=== PATIENT | male | born 1965 | race Caucasian/White ===

== ENCOUNTER 2016-11-17 07:06 | Day surgery (SDC) | payer OTHER ==
[2016-11-16 13:35] VITALS: BMI 25.9
[~2016-11-17] VITALS: Ht 170.2 cm; Wt 80.1 kg
[2016-11-17] VITALS (18 sets, daily range): BP systolic 117–164; BP diastolic 69–99; PULSE 50–86; RESP 12–23; Ht 170.2 cm; Wt 80.1 kg
[~2016-11-17 07:06] MED LIST: CEFAZOLIN 1 GM INJ ONE; ROCURONIUM 50 MG INJ ONE
[2016-11-17] MEDS ORDERED: MIDAZOLAM 1 MG/ML 2 ML INJ ONE ×2 (08:24→09:29)
[2016-11-17] MEDS ORDERED: PROPOFOL 20 ML ONE (08:24)
[2016-11-17] MEDS ORDERED: ROPIVACAINE 0.2% 20 ML VIAL ONE (08:24)
[2016-11-17] MEDS ORDERED: METOCLOPRAMIDE 10 MG INJ ONE (08:24)
[2016-11-17] MEDS ORDERED: morphine SULFATE/PF (10 MG/10 ML) INJ ONE (09:11)
[2016-11-17] MEDS ORDERED: EPINEPHrine 1 MG/ML 30 ML INJ ONE (09:11)
[2016-11-17] MEDS ORDERED: DULO30CA45 PO (09:12)
[2016-11-17] MEDS ORDERED: METH54TA9 PO (09:12)
[2016-11-17] MEDS ORDERED: PHEN30CA79 PO (09:14)
[2016-11-17] MEDS ORDERED: HYDR12.58 PO (09:14)
--- NOTE | 2016-11-17 09:29 | PREOPHP ---
DATE OF ADMISSION: 11/17/2016 This 51-year-old gentleman is going to be admitted for a diagnostic arthroscopy of left shoulder, ex amination under general anesthesia, Bankart repair, SLAP repair, possible cuff repair of left should er. This patient has been experiencing left shoulder pain for quite a while. Conservative treatment res ulted in limited benefit to the patient. The patient has requested surgical intervention. PAST MEDICAL HISTORY: Neuropathy, rheumatoid arthritis, high blood pressure. SOCIAL HISTORY: Patient is nonsmoker, rarely drinks. FAMILY HISTORY: Negative. ALLERGIES: PATIENT GIVES NO HISTORY OF ALLERGY TO MEDICATION. MEDICATIONS: Have been for ADHD and antianxiety. Other medication has been Tylenol 3 for pain for surgery and Sulindac 75 twice. REVIEW OF SYSTEMS: Limited to present illness. PHYSICAL EXAMINATION: SKIN: Within normal limits. EARS, NOSE, THROAT: PERRLA. HEAD AND NECK: Normocephalic. Trachea midline. Bilateral symmetrical carotid pulses. No mass, no bruit, no lymphadenopathy. CARDIOVASCULAR: Normal sinus rhythm. S1, S2 normal. No murmur. No JVD. No peripheral edema. LUNGS: Clear. ABDOMEN: Slightly protuberant. No organomegaly. No mass. Bowel sounds present. GENITOURINARY AND RECTAL: Not pertinent to this admission. MUSCULOSKELETAL: Height 5 feet 7, weight 178 pounds. Cervical spine shows normal findings, normal range of motion. Shoulders, elbow, forearm, wrist and hands were symmetrical and normal except for left shoulder range of motion is about 90%. There is minimal muscle atrophy. There is positive dim ple sign. There is tenderness over the trapezius region and tenderness over the anterior glenohumer al joint. Questionable [place]y test. The radiology report of the left shoulder MRI indicates a partial tear of the supraspinatus tendon. No other abnormality reported. Spine and both lower extremities symmetrical and normal including neurovascular examination. DIAGNOSES: Left shoulder instability, positive impingement sign, positive superior labrum anterior to posterior lesion and possible rotator cuff tear. Treatment plan, alternatives, risks and benefits discussed. The patient understands possibility of complications from surgery such as infection, nerve damage, v ascular damage, possibility of deep venous thrombosis, pulmonary embolism, hypersensitivity, and guerda n . Patient understands ideal result will not be obtained depending on known or unknown factor or factors. Dictated By: RAVEN PARSONS/JUANCARLOS Conf#: [id number] [facility]#: [id number]
[2016-11-17] MEDS ORDERED: CEFAZOLIN 2 GM/50 ML (PMX) 50 ML IVPB ONE (09:30)
[2016-11-17] MEDS ORDERED: HYDROmorphONE 2 MG/ML SYG ONE (10:00)
[2016-11-17] MEDS ORDERED: METOPROLOL 5 MG INJ ONE (10:04)
[2016-11-17] MEDS ORDERED: KETOROLAC 30 MG INJ ONE (11:42)
[2016-11-17] MEDS ORDERED: MEPERIDINE 25 MG INJ IV PRN (12:00)
[2016-11-17] MEDS ORDERED: METOCLOPRAMIDE 10 MG INJ IV PRN (12:00)
[2016-11-17] MEDS ORDERED: hydrALAzine 20 MG INJ IV PRN (12:00)
[2016-11-17] MEDS ORDERED: LABETALOL HCL 20MG INJ IV PRN (12:00)
[2016-11-17] MEDS ORDERED: DIPHENHYDRAMINE 50 MG INJ IV PRN (12:00)
[2016-11-17] MEDS ORDERED: OXYCODONE/ACETAMINOPHEN (5/325) TAB PO PRN ×3 (12:00→12:30)
[2016-11-17] MEDS ORDERED: ONDANSETRON 4 MG INJ IV PRN ×2 (12:00→12:30)
[2016-11-17] MEDS ORDERED: HYDROmorphONE (0.2 MG/ML) 10ML SYG IV PRN ×3 (12:00)
[2016-11-17] MEDS ORDERED: ACETAMINOPHEN 500 MG TAB PO PRN (12:30)
[2016-11-17] MEDS ORDERED: HYDROCODONE/APAP (5/325) TAB PO PRN (12:30)
--- NOTE | 2016-11-17 13:56 | OPR ---
DATE OF OPERATION: 11/17/2016 PREOPERATIVE DIAGNOSES: 1. Right shoulder Bankart lesion, possible superior labrum anterior-posterior lesion. 2. Rotator cuff tear. OPERATIONS PERFORMED: 1. Diagnostic arthroscopy. 2. Examination under general anesthesia. 3. Bankart repair. 4. Acromioplasty of left shoulder. ANESTHESIA: General. BLEEDING: Minimal. COMPLICATIONS: None. APARTMENT PROPERTY MANAGER: ____ . DESCRIPTION OF PROCEDURE: The patient was transferred to the operating room and placed on the opera ting table in supine position. General anesthesia was induced. Two grams of Ancef was given IV. T he patient was put on right decubitus position. Axillary roll applied. Knee padded. Axillary bloc k was already given by the anesthesiologist. The left shoulder was prepped and draped in the routin e fashion. During these procedures, we used Arthrex shoulder carrington, total of 10 pounds in subacrom ial space and a total of 10 pounds in the glenohumeral joint. After regular prep and draping, the landmarks were marked. Through a posterior portal, glenohumeral joint was entered. Anterolateral portal was established. An 8.5 cannula was inserted. Examinatio n under general anesthesia indicated 40% instability of the humeral head on the respected glenoid an teriorly. There was slight fraying on the biceps tendon. Note, however, the biceps anchor was ignacio ched. The labrum was thinned out; however, it was attached. There was mild chondromalacia in the a nterior part of the glenoid ____ of the glenohumeral joint; however, in the glenohumeral joint looks reasonable. Subscapularis was intact. Rotator cuff indicates minor fibrillation or minor tear of the supraspinatus from inside, less than 1%. Posterior labrum and inferior labrum were intact. The re was some synovitis present which was shrunk by Arthrocare Bovie by shrinkage. We proceeded corre ction of instability and we used suture lasso 90 degrees FiberStick and PushLock, and the capsule krueger d a lot of redundancy, so we pulled the capsule up and through the 1:30 position and incorporated th e anterior and posterior part of the anterior labrum. A PushLock 3.5 was used to drilling was made and we tightened the capsule, providing a bleeding environment from the drill hole. The PushLock wa s inserted and examination under general anesthesia indicated no further instability. Shoulder was evacuated from debris with copious amounts of saline irrigation. We entered from poste rior portal in the subacromial space. A lateral portal was established, and there was fibrillation synovitis being present, which was taken care of by shaver, and we used Arthrocare Bovie to clean up subacromial space. Acromion indicates type 3 and type 4 acromion. Therefore, formal acromioplasty was performed, debris was removed. Flap in acromion was obtained. Rotator cuff was visualized fro m above at the supraspinatus section, indicated fibrillation, no tear was obvious. Infraspinatus __ __ was also viewed and probed and did not show any tear. Three portals were closed with Mastisol an d Steri-Strips, and 10 mg Duramorph mixed with 10 mL of injectable saline was injected half into the subacromial space and half in glenohumeral joint. Sterile dressing was placed on, shoulder immobil izer applied, and procedure was terminated. Dictated By: RAVEN PARSONS/JUANCARLOS Conf#: [id number] DID#: [id number] CC: CASSIE CONTRERAS MD;*EndCC*
== END 2016-11-17 14:40 | disposition home or self-care (01) ==
LOC: SDS 07:06
PROVIDERS: ATTEND Internal Medicine Endocrinology, Diabetes & Metabolism
DX: M75.101 Unspecified rotator cuff tear or rupture of right shoulder, not specified as traumatic (principal); S43.431D Superior glenoid labrum lesion of right shoulder, subsequent encounter; X58.XXXD Exposure to other specified factors, subsequent encounter; M94.211 Chondromalacia, right shoulder; M65.811 Other synovitis and tenosynovitis, right shoulder; M25.811 Other specified joint disorders, right shoulder
CPT/HCPCS: 29807; 29826; 29827; C1713; J0171; J0690; J1170; J1885; J2250; J2274; J2765; J2795; Z7512; Z7610